=== PATIENT | female | born 1995 | race Caucasian/White ===

== ENCOUNTER 2018-06-13 01:54 | Inpatient (IN) | payer OTHER ==
--- NOTE | 2018-06-13 02:24 | ED ---
Psychiatric Complaint - HPI Summary HPI Summary: This patient is a 23 year old female brought in by ambulance to [facility] with a chief complaint of SI and suicide attempt since yesterday. Patient was brought in by ambulance from [facility]. Patient stated that she took approximately 20-25 tablets of 200mg Ibuprofen earlier yesterday night in a suicide attempt. Patient states that she recently lost her son at childbirth on 01/26/2018, her job, and her relationship. The pain is rated 0/10 in severity. Symptoms aggravated by nothing. Symptoms alleviated by nothing. Patient states she has no prior hx of depression before this. - History Of Current Complaint Chief Complaint: EDMentalHealth Time Seen by Provider: 06/13/18 02:09 Hx Obtained From: Patient Onset/Duration: Lasting Days - 1, Still Present Timing: Constant Severity Initially: Moderate Severity Currently: Mild Character: Depressed Aggravating Factor(s): Nothing Alleviating Factor(s): Nothing Associated Signs And Symptoms: Positive: Social Withdrawal Related History: Negative For: Prior Psychiatric Issues Has Suicidal: Reports: Thoughts, With A Plan, Demonstrates Gesture Ingestion History: Type/Name Of Drug - ibuprofen, Amount Ingested - 20-25 tablets - Allergies/Home Medications Home Medications: Home Medications Metformin HCl 500 mg PO DAILY 06/13/18 [History Confirmed 06/13/18] PMH/Surg Hx/FS Hx/Imm Hx Previously Healthy: Yes Opthamlomology History: Denies: Hx Legally Blind EENT History: Denies: Hx Deafness Infectious Disease History: No Infectious Disease History: Denies: Traveled Outside the [place] in Last 30 Days - Family History Known Family History: Negative: Hypertension - Social History Lives: Alone Alcohol Use: None Hx Substance Use: No Substance Use Type: Reports: None Hx Tobacco Use: No Smoking Status (MU): Never Smoked Tobacco Review of Systems Negative: Fever Positive: Depressed, Other - SI All Other Systems Reviewed And Are Negative: Yes Physical Exam - Summary Physical Exam Summary: VITAL SIGNS: Reviewed. GENERAL: Patient is a well-developed and nourished female who is lying comfortable in the stretcher. Patient is not in any acute respiratory distress. HEAD AND FACE: No signs of trauma. No ecchymosis, hematomas or skull depressions. No sinus tenderness. EYES: PERRLA, EOMI x 2, No injected conjunctiva, no nystagmus. EARS: Hearing grossly intact. Ear canals and tympanic membranes are within normal limits. MOUTH: Oropharynx within normal limits. NECK: Supple, trachea is midline, no adenopathy, no JVD, no carotid bruit, no c- spine tenderness, neck with full ROM. CHEST: Symmetric, no tenderness at palpation LUNGS: Clear to auscultation bilaterally. No wheezing or crackles. CVS: Regular rate and rhythm, S1 and S2 present, no murmurs or gallops appreciated. ABDOMEN: Soft, non-tender. No signs of distention. No rebound no guarding, and no masses palpated. Bowel sounds are normal. EXTREMITIES: FROM in all major joints, no edema, no cyanosis or clubbing. NEURO: Alert and oriented x 3. No acute neurological deficits. Speech is normal and follows commands. PSYCH: SI. Depressed affect. SKIN: Dry and warm Triage Information Reviewed: Yes Vital Signs On Initial Exam: Initial Vitals Temp Pulse Resp BP Pulse Ox 97.7 F 83 16 111/85 100 06/13/18 02:02 06/13/18 02:02 06/13/18 02:02 06/13/18 02:02 06/13/18 02:02 Vital Signs Reviewed: Yes Diagnostics - Vital Signs Vital Signs Temp Pulse Resp BP Pulse Ox 06/13/18 02:02 97.7 F 83 16 111/85 100 - Laboratory Result Diagrams: 06/15/18 07:49 06/15/18 07:49 Lab Statement: Any lab studies that have been ordered have been reviewed, and results considered in the medical decision making process. Course/Dx - Course Course Of Treatment: This patient is a 23 year old female brought in by ambulance to [facility] with a chief complaint of SI and suicide attempt since yesterday. Patient was brought in by ambulance from [facility]. Patient stated that she took approximately 20-25 tablets of 200mg Ibuprofen earlier yesterday night in a suicide attempt. The pt is hemodynamically stable, alert and oriented x3. Patient is diagnosed with depression. Patient will be signed out to Dr. Olsen at end of shift, pending MHE. The patient is agreeable with this plan. - Differential Dx/Clinical Impression Provider Diagnosis: Depression - Physician Notifications Patient Is Medically Stable For: Psych Evaluation Discharge - Sign-Out/Discharge Documenting (check all that apply): Sign-Out Patient Signing out patient TO: Bobby Olsen Patient Received Moderate/Deep Sedation with Procedure: No - Discharge Plan Condition: Stable Disposition: [place]CHIATRIC FAC[place] [place] Billing Disposition and Condition Condition: STABLE Disposition: Psychiatric Facility [facility] - Attestation Statements Document Initiated by Bennette: Yes Documenting Scribe: Jamison Benton Provider For Whom Jocelyn is Documenting (Include Credential): Loren Rodriguez MD Scribe Attestation: Jamison Edmondson, scribed for Loren Rodriguez MD on 06/18/18 at 0623. Scribe Documentation Reviewed: Yes Provider Attestation: The documentation as recorded by the Jamison avila accurately reflects the service I personally performed and the decisions made by Roslyn barnett MD Status of Scribe Document: Viewed
--- NOTE | 2018-06-13 07:08 | ED ---
Progress - Progress Note Progress Note: This patient was signed out from Dr. Rodriguez to Dr. Olsen upon provider shift change pending mental health evaluation. Course/Dx - Course Course Of Treatment: Ms. Mitchell had been medically cleared at the beginning of my shift and was taken over to the [facility] where she underwent a mental health eval. They recommended involuntary 939 admission and she was transferred to the unit. - Diagnoses Provider Diagnoses: Depression Discharge - Sign-Out/Discharge Documenting (check all that apply): Patient Departure - admit to [facility] [place], Receiving Sign-Out Receiving patient FROM: Loren Rodriguez Patient Received Moderate/Deep Sedation with Procedure: No - Discharge Plan Condition: Stable Disposition: [facility]CHIATRIC FACILITY[place] [place] - Billing Disposition and Condition Condition: STABLE Disposition: Psychiatric Facility [facility] [place] - Attestation Statements Document Initiated by Scribe: Yes Documenting Scribe: Ashely Krause Provider For Whom Scribe is Documenting (Include Credential): Bobby Olsen MD Scribe Attestation: Ashely Edmondson, scribed for Bobby Olsen MD on 06/13/18 at 1827. Scribe Documentation Reviewed: Yes Provider Attestation: The documentation as recorded by the scribeAshely accurately reflects the service I personally performed and the decisions made by me, Bobby Olsen MD Status of Scribe Document: Viewed
[2018-06-13 13:57] LABS: ABS Basophils 0.2 10^3/ul (0-0.2); ABS Eosinophils 0.3 10^3/ul (0-0.6); ABS Lymphocytes 3.3 10^3/ul (1.0-4.8); ABS Monocytes 1.5 10^3/ul (0-0.8); ABS Neutrophils 10.7 10^3/ul (1.5-7.7); ABS Nucleated RBC 0 10^3/ul; Eosinophil % 2.1 %; Hematocrit 46 % (35-47); Hemoglobin 15.5 g/dl (12.0-16.0); Lymphocyte % 20.5 %; Mean Corpuscular HGB Conc 33 g/dl (31-36); Mean Corpuscular Hemoglobin 30 pg (27-31); Mean Corpuscular Volume 91 fL (80-97); Mean Platelet Volume 8.1 fL (7.4-10.4); Nucleated Red Blood Cells % 0; Platelet Count 286 10^3/ul (150-450); Red Blood Count 5.13 10^6/ul (4.00-5.40); Red Cell Distribution Width 14 % (10.5-15)
[2018-06-13 14:09] LABS: Acetaminophen < 15 mcg/mL; Alcohol < 10 mg/dL (<10); Salicylate < 2.50 mg/dL (<30)
[2018-06-13 14:10] LABS: ALT 20 U/L (7-52); AST 19 U/L (13-39); Albumin 4.2 g/dL (3.2-5.2); Albumin/Globulin Ratio 1.7 (1-3); Alkaline Phosphatase 61 U/L (34-104); Anion Gap 7 mmol/L (2-11); BUN/Creatinine Ratio 11.9 (8-20); Blood Urea Nitrogen 16 mg/dL (6-24); CO2 Carbon Dioxide 23 mmol/L (22-32); Calcium 9.5 mg/dL (8.6-10.3); Chloride 111 mmol/L (101-111); EGFR African American 59.8 (>60); EGFR Non-African American 49.5 (>60); Globulin 2.5 g/dL (2-4); Glucose 92 mg/dL (70-100); Potassium 4.3 mmol/L (3.5-5.0); Sodium 141 mmol/L (135-145); Total Protein 6.7 g/dL (6.4-8.9)
[2018-06-13 14:16] LABS: HCG Pregnancy < 0.60 mIU/mL
[2018-06-13 14:24] LABS: TSH (Thyroid Stimulating Horm) 0.58 mcIU/mL (0.34-5.60)
[2018-06-13] MEDS ORDERED: Acetaminophen TAB* 325 MG PO PRN (18:19)
[2018-06-13] MEDS ORDERED: Al Hydrox/Mg Hydrox/Simet LIQ* 30 ML UDC PO PRN (18:19)
[2018-06-13] MEDS ORDERED: Nicotine Inhaler* 10 MG AMP INH PRN (19:27)
[2018-06-13] MEDS ORDERED: Nicotine GUM* 2 MG PO PRN (19:27)
[2018-06-13] MEDS ORDERED: Mouth Piece, Nicotine* 1 EACH CARTRIDGE INH SCH (19:27)
[2018-06-13] MEDS: Nicotine Patch Removal NOTE PATCH OFF SCH (20:38)
[2018-06-14] MEDS: Vitamin THERAPEUTIC TAB PO SCH (10:10)
[2018-06-14] MEDS: Nicotine PATCH 21 MG/24 HR* PATCH TRANSDERM SCH (10:10)
--- NOTE | 2018-06-14 19:23 | HP ---
HISTORY AND PHYSICAL: DATE OF ADMISSION: 06/13/18 IDENTIFYING DATA: Arlet is a 23-year-old female with no prior history of mental illness, who was brought in from [facility] after a suicide attempt by overdosing on handful of 200 mg ibuprofen earlier during the day. CHIEF COMPLAINT: "I was totally overwhelmed with too many things happening at the same time and wanted to end my life." HISTORY OF PRESENT ILLNESS: Arlet, with no prior history of mental illness, hospitalization, or treatment outpatient basis was taken to the [facility] following an intentional overdose on 20 to 25 200-mg tablets of ibuprofen. Arlet reports that her boyfriend of couple of years left her. Her mother reportedly had a recurrence of cancer. Her father is not doing that well. She lost her job and does not know how she is going to support herself. On top of everything, it was almost a year that she lost her son at . She was overwhelmed that she decided to end her life to overcome the emotional pain. There were other friends around her when she did it. They called 911 and she was taken to the [facility] from where she was transferred to this hospital. During the assessment, Arlet denies any manic, hypomanic, depressive, or psychotic symptoms. She was never diagnosed with any mental illness and never seen a psychiatrist. Her only problem is a diagnosis of polycystic ovary disease for which she takes metformin. At this time, she denies any mood, thought, or perceptual problems. During today's evaluation, she also denies any thoughts of harming self or others. PAST PSYCHIATRIC HISTORY: Unremarkable. SUBSTANCE ABUSE HISTORY: Denies using any drugs. PAST MEDICAL HISTORY: Polycystic ovary disease. ALLERGIES: No known drug allergies. FAMILY HISTORY: She is one of 8 siblings; however, she denies any one of them has mental illness. Also, denies mental illness in any of her first-degree relatives including her parents. PERSONAL AND SOCIAL HISTORY: Arlet lived for the last couple of years with her live- in boyfriend, who recently took his stuff and left saying that he needed a personal space and did not want to continue with the relationship. She was employed up until recently and was able to pay all the bills; however, she is unemployed at this time and hoping that she will be able to find a job or move with her parents, who are willing to take her back. She denies any legal problems. PHYSICAL EXAMINATION GENERAL: She is an obese, but healthy-appearing usual 23-year-old. VITAL SIGNS: Her vitals taken show a blood pressure of 111/85, pulse 83, respirations 16, temperature 97.7 degrees Fahrenheit, pulse ox 100% on room air. HEENT: Head and face within normal limits. Head is atraumatic, normocephalic with blonde hair. Face is within normal limits. Eyes: PERRLA, EOMI x2. Clear conjunctivae. Ears: Clean ear canals bilaterally with intact eardrums. Mouth: Fair hygiene with minor problem with her dentition. NECK: Supple with midline trachea. No lymphadenopathy or thyromegaly. CHEST: Equal air entry bilaterally. No wheezing or crackles. CVS: Normal heart rate and rhythm. S1 and S2 only. No murmurs, gallops, or rubs. ABDOMEN: Somewhat obese; however, no evidence of organomegaly. Positive bowel sounds in all quadrants. EXTREMITIES: Within normal limits. Full movements of joints. Positive pulses in all extremities. NEUROLOGICAL: Alert and oriented to time, place, and person. Cranial nerves II through XII grossly intact. No sensory deficit. MENTAL STATUS EXAMINATION: Appropriately dressed, neatly groomed, average height white female, who is alert and oriented to time, place, and person. She makes good eye contact. Speech is normal in all spheres. Describes her mood as "fine." Observed affect appears to be euthymic. Thought processes are logical and goal directed. Thought content did not elicit any delusions, suicidal, or homicidal ideations. Denies any hallucinations. Intelligence appears to be average as evidenced by her vocabulary and fund of knowledge. Memory functions are intact in all spheres. Insight and judgment appear to be poor. SUMMARY: This 23-year-old female with no prior history of treatments for mental illness, who is going through multiple stressful life events and impulsively overdosed with an intention to end her life. DIAGNOSTIC IMPRESSION: MENTAL HEALTH DIAGNOSIS: Adjustment disorder with depressed mood, rule out major depressive disorder. PHYSICAL HEALTH DIAGNOSIS: Polycystic ovary disease. TREATMENT RECOMMENDATIONS: Arlet will remain hospitalized on [facility] for her safety , observation, and diagnostic clarifications. Her code status will remain full. Supportive milieu, individual, and group therapy will be initiated, which she has been attending since her admission. At this time, I do not see any reason to start her on any medications; however, if her assigned psychiatrist on the unit feels that way, they can prescribe her something. I will continue her on her outpatient medications, which include metformin. [id number]/[facility] #: [id number] TIFFANIE
[2018-06-14] MEDS: Nicotine Patch Removal NOTE PATCH OFF SCH (21:28)
[2018-06-15 08:37] LABS: HDL Cholesterol 25.1 mg/dL
[2018-06-15] MEDS: Nicotine PATCH 21 MG/24 HR* PATCH TRANSDERM SCH (09:29)
[2018-06-15] MEDS: Vitamin THERAPEUTIC TAB PO SCH (09:29)
--- NOTE | 2018-06-15 11:31 | PN ---
Subjective - Subjective Date of Service: 06/15/18 Service Type: 84548 Hosp care 25 min moderate complexity Subjective: Nursing Report: Patient was visible on unit, no chemical restraints or PRNs. Slept overnight without incident. Attending group activities. CC: "I am good Patient was seen and evaluated in the common room. The patient reported she feels safe on the unit and is interacting with peers. She reported having an adequate appetite and sleep. The patient reports attending and participating in day groups. Per nursing no behavioral issues or overnight events reported. Patient reported that she was dealing with a recent break up, and health problems with her parents and took a overdose of pills. She would like to have a therapist once she is discharged. She denied feeling depressed outside of dealing with the current stressors. She denied suicidal ideation, intent or plan. She denied homicidal ideation intent or plan. She denied auditory and or visual hallucinations. Objective - Appearance Appearance: Obese Dysmorphic Features: No Hygiene: Normal Grooming: Well Kept - Behavior Psychomotor Activities: Normal Exhibits Abnormal Movement: No - Attitude and Relatedness Attitude and Relatedness: Cooperative Eye Contact: Fair - Speech Quality: Unpressured Latencies: Normal Quantity: Appropriate - Mood Patient's Decription of Mood: "Good" - Affect Observed Affect: Non-labile Affect Consistent with: Euthymia - Thought Process Patient's Thought Process: Goal Directed Thought Content: No Passive Wish, No Suicidal Planning, No Homicidal Ideation - Sensorium Experiencing Hallucinations: No, Sensorium is Clear Type of Hallucinations: Visual: No, Auditory: No, Command: No - Level of Consciousness Level of Consciousness: Alert Orientation: Yes Intact, Yes Orientated to Time, Yes Orientated to Place, Yes Orientated to Person - Impulse Control Impulse Control: Impaired - Insight and Judgement Insight and Judgement: Fair - Group Participation Particating in Group Activities: Yes - Medication Management Medication Management Adherence: No Assessment - Assessment Clinical Impression: 23 year old white female presents to the ED after overdosing with pills after a recent break up and health concerns of both of her parents. She has no past psychiatric history. Plan - Plan Treatment Plan: Name: DARRIUS VASQUEZ Birthdate: 1995 [id number] #Patient requires inpatient psychiatric hospitalization at this time. #Patient doesnt require psychiatric medications- as patients presentation is more related to current stressors. #Will continue to monitor for safety every 15 minutes on the unit. #Labs pending will be reviewed once results return. #Encourage participation in group therapy and psychoeducation #Social work is on board for discharge planning. #Goals before discharge include improve control of impulses #Collateral in process of being obtained from Roseanne Traylor [phone] (Friend ) - mother Ayesha Sheehan [phone] # Tentative discharge tomorrow. To be set up with therapist before discharge. Medications: Current Medications Acetaminophen (Tylenol Tab*) 650 mg PO Q4H PRN PRN Reason: PAIN or TEMP > 101 F Al Hydrox/Mg Hydrox/Simethicone (Maalox Plus*) 30 ml PO Q4H PRN PRN Reason: INDIGESTION Device (Nicotine Mouth Piece*) 1 each INH .[facility] Multivitamins (Theragran Tab*) 1 tab PO DAILY [facility] Last Admin: 06/15/18 09:29 Dose: Not Given Nicotine (Nicotine Inhaler*) 10 mg INH Q2H PRN PRN Reason: CRAVING Nicotine (Nicotine Patch 21 Mg/24 Hr*) 1 patch TRANSDERM DAILY [facility] Last Admin: 06/15/18 09:29 Dose: Not Given Nicotine Polacrilex (Nicotine Gum*) 2 mg PO Q2H PRN PRN Reason: CRAVING Pharmacy Profile Note (Nicotine Patch Removal Note*) 1 note PATCH OFF 2100 [facility] Last Admin: 06/14/18 21:28 Dose: Not Given - Discharge Plan Discharge Plan: Inpatient Hospitalization Outpatient Program: Kathy العلي [facility]
[2018-06-15 11:43] LABS: EGFR African American 128.7 (>60); EGFR Non-African American 106.4 (>60)
[2018-06-15] MEDS: Nicotine Patch Removal NOTE PATCH OFF SCH (21:07)
[2018-06-16] MEDS: Nicotine PATCH 21 MG/24 HR* PATCH TRANSDERM SCH (09:12)
[2018-06-16] MEDS: Vitamin THERAPEUTIC TAB PO SCH (09:12)
--- NOTE | 2018-06-16 09:39 | PN ---
Subjective - Subjective Date of Service: 06/16/18 Service Type: 22961 Hosp care 25 min moderate complexity Subjective: Nursing Report: Patient was visible on unit, no chemical restraints or PRNs. Attending group activities. CC: "Good Patient was seen and evaluated in the common room. The patient reported she feels safe on the unit and is interacting with peers on the milieu. She reported having an adequate appetite. The patient reports attending and participating in day groups. Per nursing no behavioral issues or overnight events reported. Patient reported that she was dealing with a recent break up, and health problems with her parents and took a overdose of pills. She would like to have a therapist because she said that talking about the things she is going through is helpful to her. She said that her grandmother always told her that admitting something was wrong is a weakness and never believed in medications. She said that she was in denial about being anxious and depressed and would like to be started on medication. 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 She denied suicidal ideation, intent or plan. She denied homicidal ideation intent or plan. She denied auditory and or visual hallucinations. She reported being anxious last night and did not sleep well. Objective - Appearance Dysmorphic Features: Yes Hygiene: Normal Grooming: Fairly Well Kept - Behavior Psychomotor Activities: Normal Exhibits Abnormal Movement: No - Attitude and Relatedness Attitude and Relatedness: Cooperative Eye Contact: Fair - Speech Quality: Unpressured Latencies: Short Quantity: Appropriate - Mood Patient's Decription of Mood: "Good" - Affect Observed Affect: Non-labile - Thought Process Patient's Thought Process: Goal Directed Thought Content: No Passive Wish, No Suicidal Planning, No Homicidal Ideation, No Paranoid Ideation - Sensorium Experiencing Hallucinations: No, Sensorium is Clear Type of Hallucinations: Visual: No, Auditory: No, Command: No - Level of Consciousness Level of Consciousness: Alert Orientation: Yes Intact, Yes Orientated to Time, Yes Orientated to Place, Yes Orientated to Person - Impulse Control Impulse Control: Tenuous - Insight and Judgement Insight and Judgement: Fair - Group Participation Particating in Group Activities: Yes - Medication Management Medication Management Adherence: No Assessment - Assessment Clinical Impression: 23 year old white female presents to the ED after overdosing with pills after a recent break up and health concerns of both of her parents. She has no past psychiatric history. Will begin treatment with Celexa. Plan - Plan Treatment Plan: Name: DARRIUS VASQUEZ Birthdate: 1995 [id number] #Patient requires inpatient psychiatric hospitalization at this time. #Patient doesnt require psychiatric medications- as patients presentation is more related to current stressors. #Q30 and staff pass #Start celexa 20mg daily #Encourage participation in group therapy and psychoeducation #Social work is on board for discharge planning. #Goals before discharge include improve control of impulses #Mother plans to fish bait picker tomorrow and if no issues will be discharged. # Tentative discharge tomorrow. To be set up with therapist before discharge. Sodium 141 mmol/L (135-145) 06/13/18 13:41 Potassium 4.3 mmol/L (3.5-5.0) 06/13/18 13:41 BUN 16 mg/dL (6-24) 06/13/18 13:41 Creatinine 0.69 mg/dL (0.51-0.95) 06/15/18 07:49 Hemoglobin A1c 5.3 % (4.0-5.6) 06/15/18 07:49 Calcium 9.5 mg/dL (8.6-10.3) 06/13/18 13:41 AST 19 U/L (13-39) 06/13/18 13:41 ALT 20 U/L (7-52) 06/13/18 13:41 Triglycerides 111 mg/dL 06/15/18 07:49 Cholesterol 122 mg/dL 06/15/18 07:49 LDL Cholesterol 75 mg/dL 06/15/18 07:49 Continued Medication Management: Start Medication Medications: Current Medications Acetaminophen (Tylenol Tab*) 650 mg PO Q4H PRN PRN Reason: PAIN or TEMP > 101 F Al Hydrox/Mg Hydrox/Simethicone (Maalox Plus*) 30 ml PO Q4H PRN PRN Reason: INDIGESTION Device (Nicotine Mouth Piece*) 1 each INH .[facility] Multivitamins (Theragran Tab*) 1 tab PO DAILY [facility] Last Admin: 06/16/18 09:12 Dose: 1 tab Nicotine (Nicotine Inhaler*) 10 mg INH Q2H PRN PRN Reason: CRAVING Nicotine (Nicotine Patch 21 Mg/24 Hr*) 1 patch TRANSDERM DAILY [facility] Last Admin: 06/16/18 09:12 Dose: 1 patch Nicotine Polacrilex (Nicotine Gum*) 2 mg PO Q2H PRN PRN Reason: CRAVING Pharmacy Profile Note (Nicotine Patch Removal Note*) 1 note PATCH OFF 2099 [facility] Last Admin: 06/15/18 21:07 Dose: Not Given - Discharge Plan Discharge Plan: Inpatient Hospitalization
[2018-06-16] MEDS: Citalopram TAB* 20 MG PO SCH (12:29)
[2018-06-16] MEDS: Nicotine Patch Removal NOTE PATCH OFF SCH (20:08)
[2018-06-17 08:14] VITALS: BP 134/69
[2018-06-17] MEDS: Vitamin THERAPEUTIC TAB PO SCH (09:11)
[2018-06-17] MEDS: Nicotine PATCH 21 MG/24 HR* PATCH TRANSDERM SCH (09:11)
[2018-06-17] MEDS: Citalopram TAB* 20 MG PO SCH (09:11)
--- NOTE | 2018-06-17 12:28 | PN ---
Subjective - Subjective Date of Service: 06/17/18 Service Type: 50592 Hosp care 25 min moderate complexity Subjective: Nursing Report: Patient was visible on unit, no chemical restraints or PRNs. Attending group activities. CC: "Good Patient was seen and evaluated in the common room. Family meeting was held yesterday and her mother stated that she might not be ready to be discharged because she has is not being honest. Her mother reported that she has taken medications in the past and made a suicide attempt by cutting herself. The patient denied such events. The patient is in agreement with staying at the hospital. She feels safe on the unit and is interacting with peers on the milieu. She reported having an adequate appetite. She reported that her anxiety is less today and she slept well overnight. The patient reports attending and participating in day groups. Per nursing no behavioral issues or overnight events reported. She denied suicidal ideation, intent or plan. She denied homicidal ideation intent or plan. She denied auditory and or visual hallucinations. Objective - Appearance Appearance: Obese Dysmorphic Features: No Hygiene: Normal Grooming: Fairly Well Kept - Behavior Psychomotor Activities: Normal Exhibits Abnormal Movement: No - Attitude and Relatedness Attitude and Relatedness: Cooperative Eye Contact: Fair - Speech Quality: Unpressured Latencies: Normal Quantity: Appropriate - Mood Patient's Decription of Mood: "Good" - Affect Observed Affect: Non-labile Affect Consistent with: Euthymia - Thought Process Patient's Thought Process: Goal Directed Thought Content: No Passive Wish, No Suicidal Planning, No Homicidal Ideation, No Paranoid Ideation - Sensorium Experiencing Hallucinations: No, Sensorium is Clear Type of Hallucinations: Visual: No, Auditory: No, Command: No - Level of Consciousness Level of Consciousness: Alert Orientation: Yes Intact, Yes Orientated to Time, Yes Orientated to Place, Yes Orientated to Person - Impulse Control Impulse Control: Tenuous - Insight and Judgement Insight and Judgement: Fair - Group Participation Particating in Group Activities: Yes - Medication Management Medication Management Adherence: Yes Assessment - Assessment Clinical Impression: 23 year old white female presents to the ED after overdosing with pills after a recent break up and health concerns of both of her parents. Plan - Plan Treatment Plan: Name: DARRIUS VASQUEZ Birthdate: 1995 [id number] #Patient requires inpatient psychiatric hospitalization at this time. #Patient doesnt require psychiatric medications- as patients presentation is more related to current stressors. #Q30 and staff pass #Continue celexa 20mg daily #Encourage participation in group therapy and psychoeducation #Social work is on board for discharge planning. #Goals before discharge include improve anxiety # Tentative discharge Friday Vital Signs Temp Pulse Resp BP Pulse Ox 97.6 F 70 16 134/69 100 06/17/18 07:50 06/17/18 07:50 06/17/18 12:51 06/17/18 07:50 06/17/18 07:50 Sodium 141 mmol/L (135-145) 06/13/18 13:41 Potassium 4.3 mmol/L (3.5-5.0) 06/13/18 13:41 BUN 16 mg/dL (6-24) 06/13/18 13:41 Creatinine 0.69 mg/dL (0.51-0.95) 06/15/18 07:49 Hemoglobin A1c 5.3 % (4.0-5.6) 06/15/18 07:49 Calcium 9.5 mg/dL (8.6-10.3) 06/13/18 13:41 AST 19 U/L (13-39) 06/13/18 13:41 ALT 20 U/L (7-52) 06/13/18 13:41 Triglycerides 111 mg/dL 06/15/18 07:49 Cholesterol 122 mg/dL 06/15/18 07:49 LDL Cholesterol 75 mg/dL 06/15/18 07:49 Continued Medication Management: Start Medication Medications: Current Medications Acetaminophen (Tylenol Tab*) 650 mg PO Q4H PRN PRN Reason: PAIN or TEMP > 101 F Al Hydrox/Mg Hydrox/Simethicone (Maalox Plus*) 30 ml PO Q4H PRN PRN Reason: INDIGESTION Citalopram Hydrobromide (Celexa Tab*) 20 mg PO DAILY [facility] Last Admin: 06/17/18 09:11 Dose: 20 mg Device (Nicotine Mouth Piece*) 1 each INH .[facility] Multivitamins (Theragran Tab*) 1 tab PO DAILY [facility] Last Admin: 06/17/18 09:11 Dose: 1 tab Nicotine (Nicotine Inhaler*) 10 mg INH Q2H PRN PRN Reason: CRAVING Nicotine (Nicotine Patch 21 Mg/24 Hr*) 1 patch TRANSDERM DAILY [facility] Last Admin: 06/17/18 09:11 Dose: Not Given Nicotine Polacrilex (Nicotine Gum*) 2 mg PO Q2H PRN PRN Reason: CRAVING Pharmacy Profile Note (Nicotine Patch Removal Note*) 1 note PATCH OFF 2099 [facility] Last Admin: 06/16/18 20:08 Dose: 1 note - Discharge Plan Discharge Plan: Inpatient Hospitalization
--- NOTE | 2018-06-17 16:22 | PN ---
BSU: Group Therapy Note - Service Type Service Type: [id number] Group Psychotherapy - Group Participation Patient Participating in Group: Yes Level of Group Participation: Spontaneously Participate Relatedness to Group: Well Related - Additional Group Comments Group Comments: Patient was attentive and participatory in group, and remained in good behavioral control. Patient expressed positive insights regarding relevant treatment interventions. Patient stated understanding of material discussed and had appropriate questions.
[2018-06-17] MEDS: Nicotine Patch Removal NOTE PATCH OFF SCH (21:20)
[2018-06-18] MEDS: Vitamin THERAPEUTIC TAB PO SCH (08:53)
[2018-06-18] MEDS: Citalopram TAB* 20 MG PO SCH (08:53)
[2018-06-18] MEDS: Nicotine PATCH 21 MG/24 HR* PATCH TRANSDERM SCH (09:21)
--- NOTE | 2018-06-18 10:58 | PN ---
BSU: Group Therapy Note - Service Type Service Type: 72360 Group Psychotherapy - Cognitive Behavioral Group Therapy ( CBT):Patient was attentive and participatory in CBT programming this morning, and remained in good behavioral control. Patient expressed positive insights regarding relevant treatment interventions and goals.
--- NOTE | 2018-06-18 14:13 | PN ---
Subjective - Subjective Date of Service: 06/18/18 Service Type: 02855 Hosp care 25 min moderate complexity Subjective: Nursing Report: Patient was visible on unit, no chemical restraints or PRNs. Attending group activities. CC: "Better Patient was seen and evaluated in the common room. Patient said that she never had a prior suicide attempt other than the days leading to her admission . She said that she scratched her self on the arm the day before coming to the ED. The patient feels safe on the unit and is interacting with peers on the milieu. She reported having an adequate appetite. She reported that her anxiety is less today and she slept well overnight. The patient reports attending and participating in day groups. Per nursing no behavioral issues or overnight events reported. She denied suicidal ideation, intent or plan. She denied homicidal ideation intent or plan. She denied auditory and or visual hallucinations. Objective - Appearance Appearance: Healthy Appearing Dysmorphic Features: No Hygiene: Normal Grooming: Fairly Well Kept - Behavior Psychomotor Activities: Normal Exhibits Abnormal Movement: No - Attitude and Relatedness Attitude and Relatedness: Cooperative Eye Contact: Fair - Speech Quality: Unpressured Latencies: Normal Quantity: Appropriate - Mood Patient's Decription of Mood: "Fine" - Affect Observed Affect: Non-labile - Thought Process Patient's Thought Process: Coherent Thought Content: No Passive Wish, No Suicidal Planning, No Homicidal Ideation, No Paranoid Ideation - Sensorium Experiencing Hallucinations: No, Sensorium is Clear Type of Hallucinations: Visual: No, Auditory: No, Command: No - Level of Consciousness Level of Consciousness: Alert Orientation: Yes Intact, Yes Orientated to Time, Yes Orientated to Place, Yes Orientated to Person - Impulse Control Impulse Control: Tenuous - Insight and Judgement Insight and Judgement: Fair - Group Participation Particating in Group Activities: Yes - Medication Management Medication Management Adherence: Yes Assessment - Assessment Merits Inpatient Hospitalization: For Immediate Safety Clinical Impression: 23 year old white female presents to the ED after overdosing with pills after a recent break up and health concerns of both of her parents. She has shown improvement with treatment. Plan - Plan Treatment Plan: Name: DARRIUS VASQUEZ Birthdate: 1995 [id number] #Patient requires inpatient psychiatric hospitalization at this time. #Patient doesnt require psychiatric medications- as patients presentation is more related to current stressors. #Q30 and staff pass #Continue celexa 20mg daily #Encourage participation in group therapy and psychoeducation #Social work is on board for discharge planning. #Goals before discharge include improve anxiety # Tentative discharge Friday Vital Signs Temp Pulse Resp BP Pulse Ox 97.6 F 70 16 134/69 100 06/17/18 07:50 06/17/18 07:50 06/17/18 12:51 06/17/18 07:50 06/17/18 07:50 Laboratory Tests 06/13/18 06/13/18 06/15/18 13:41 13:41 07:49 WBC 16.0 H RBC 5.13 Hgb 15.5 Hct 46 MCV 91 MCH 30 MCHC 33 RDW 14 Plt Count 286 MPV 8.1 Neut % (Auto) 66.9 Lymph % (Auto) 20.5 Carlisle % (Auto) 9.3 Eos % (Auto) 2.1 Baso % (Auto) 1.2 Absolute Neuts (auto) 10.7 H Absolute Lymphs (auto) 3.3 Absolute Monos (auto) 1.5 H Absolute Eos (auto) 0.3 Absolute Basos (auto) 0.2 Absolute Nucleated RBC 0 Nucleated RBC % 0 Sodium 141 Potassium 4.3 Chloride 111 Carbon Dioxide 23 Anion Gap 7 BUN 16 Creatinine 1.34 H 0.69 Est GFR ( Amer) 59.8 128.7 Est GFR (Non-Af Amer) 49.5 106.4 BUN/Creatinine Ratio 11.9 Glucose 92 Hemoglobin A1c Calcium 9.5 Total Bilirubin 0.30 AST 19 ALT 20 Alkaline Phosphatase 61 Total Protein 6.7 Albumin 4.2 Globulin 2.5 Albumin/Globulin Ratio 1.7 Triglycerides 111 Cholesterol 122 LDL Cholesterol 75 HDL Cholesterol 25.1 TSH 0.58 Beta HCG, Quant < 0.60 Salicylates < 2.50 Acetaminophen < 15 Serum Alcohol < 10 06/15/18 06/15/18 07:49 07:49 WBC 13.0 H RBC Hgb Hct MCV MCH MCHC RDW Plt Count MPV Neut % (Auto) Lymph % (Auto) Carlisle % (Auto) Eos % (Auto) Baso % (Auto) Absolute Neuts (auto) Absolute Lymphs (auto) Absolute Monos (auto) Absolute Eos (auto) Absolute Basos (auto) Absolute Nucleated RBC Nucleated RBC % Sodium Potassium Chloride Carbon Dioxide Anion Gap BUN Creatinine Est GFR ( Amer) Est GFR (Non-Af Amer) BUN/Creatinine Ratio Glucose Hemoglobin A1c 5.3 Calcium Total Bilirubin AST ALT Alkaline Phosphatase Total Protein Albumin Globulin Albumin/Globulin Ratio Triglycerides Cholesterol LDL Cholesterol HDL Cholesterol TSH Beta HCG, Quant Salicylates Acetaminophen Serum Alcohol Continued Medication Management: Start Medication Medications: Current Medications Acetaminophen (Tylenol Tab*) 650 mg PO Q4H PRN PRN Reason: PAIN or TEMP > 101 F Al Hydrox/Mg Hydrox/Simethicone (Maalox Plus*) 30 ml PO Q4H PRN PRN Reason: INDIGESTION Citalopram Hydrobromide (Celexa Tab*) 20 mg PO DAILY [facility] Last Admin: 06/18/18 08:53 Dose: 20 mg Device (Nicotine Mouth Piece*) 1 each INH .[facility] Multivitamins (Theragran Tab*) 1 tab PO DAILY [facility] Last Admin: 06/18/18 08:53 Dose: 1 tab Nicotine (Nicotine Inhaler*) 10 mg INH Q2H PRN PRN Reason: CRAVING Nicotine (Nicotine Patch 21 Mg/24 Hr*) 1 patch TRANSDERM DAILY [facility] Last Admin: 06/18/18 09:21 Dose: Not Given Nicotine Polacrilex (Nicotine Gum*) 2 mg PO Q2H PRN PRN Reason: CRAVING Pharmacy Profile Note (Nicotine Patch Removal Note*) 1 note PATCH OFF 2099 [facility] Last Admin: 06/17/18 21:20 Dose: 1 note - Discharge Plan Discharge Plan: Inpatient Hospitalization
[2018-06-18] MEDS: Nicotine Patch Removal NOTE PATCH OFF SCH (20:15)
[2018-06-19] MEDS: Nicotine PATCH 21 MG/24 HR* PATCH TRANSDERM SCH (08:31)
[2018-06-19] MEDS: Citalopram TAB* 20 MG PO SCH (08:32)
[2018-06-19] MEDS: Vitamin THERAPEUTIC TAB PO SCH (08:32)
--- NOTE | 2018-06-19 11:53 | DS ---
Subjective - Subjective Service Types: 10776 [facility] Day Mgmt complex over 30 min Discharge Date: 06/19/18 Subjective: IDENTIFYING DATA: Arlet is a 23-year-old female with no prior history of mental illness, who was brought in from [facility] after a suicide attempt by overdosing on handful of 200 mg ibuprofen earlier during the day. CHIEF COMPLAINT: "I was totally overwhelmed with too many things happening at the same time and wanted to end my life." HISTORY OF PRESENT ILLNESS: Arlet, with no prior history of mental illness, hospitalization, or treatment outpatient basis was taken to the [facility] following an intentional overdose on 20 to 25 200-mg tablets of ibuprofen. Arlet reports that her boyfriend of couple of years left her. Her mother reportedly had a recurrence of cancer. Her father is not doing that well. She lost her job and does not know how she is going to support herself. On top of everything, it was almost a year that she lost her son at . She was overwhelmed that she decided to end her life to overcome the emotional pain. There were other friends around her when she did it. They called 911 and she was taken to the [facility] from where she was transferred to this hospital. During the assessment, Arlet denies any manic, hypomanic, depressive, or psychotic symptoms. She was never diagnosed with any mental illness and never seen a psychiatrist. Her only problem is a diagnosis of polycystic ovary disease for which she takes metformin. At this time, she denies any mood, thought, or perceptual problems. During today's evaluation, she also denies any thoughts of harming self or others. PAST PSYCHIATRIC HISTORY: Unremarkable. SUBSTANCE ABUSE HISTORY: Denies using any drugs. PAST MEDICAL HISTORY: Polycystic ovary disease. ALLERGIES: No known drug allergies. FAMILY HISTORY: She is one of 8 siblings; however, she denies any one of them has mental illness. Also, denies mental illness in any of her first-degree relatives including her parents. PERSONAL AND SOCIAL HISTORY: Arlet lived for the last couple of years with her live- in boyfriend, who recently took his stuff and left saying that he needed a personal space and did not want to continue with the relationship. She was employed up until recently and was able to pay all the bills; however, she is unemployed at this time and hoping that she will be able to find a job or move with her parents, who are willing to take her back. She denies any legal problems. This report is only to be considered final once signed by the Provider(s) as displayed in the "<Electronically Signed by >" field (s). Absence of a signature indicates the report is in a draft status and still needs to be finalized. In the event this document was created by someone other than the signing Provider, the individual initiating the document will be listed in the "Entered by:" or "Dictated by:" slaughter. PHYSICAL EXAMINATION GENERAL: She is an obese, but healthy-appearing usual 23-year-old. VITAL SIGNS: Her vitals taken show a blood pressure of 111/85, pulse 83, respirations 16, temperature 97.7 degrees Fahrenheit, pulse ox 100% on room air. HEENT: Head and face within normal limits. Head is atraumatic, normocephalic with blonde hair. Face is within normal limits. Eyes: PERRLA, EOMI x2. Clear conjunctivae. Ears: Clean ear canals bilaterally with intact eardrums. Mouth: Fair hygiene with minor problem with her dentition. NECK: Supple with midline trachea. No lymphadenopathy or thyromegaly. CHEST: Equal air entry bilaterally. No wheezing or crackles. CVS: Normal heart rate and rhythm. S1 and S2 only. No murmurs, gallops, or rubs. ABDOMEN: Somewhat obese; however, no evidence of organomegaly. Positive bowel sounds in all quadrants. EXTREMITIES: Within normal limits. Full movements of joints. Positive pulses in all extremities. NEUROLOGICAL: Alert and oriented to time, place, and person. Cranial nerves II through XII grossly intact. No sensory deficit. MENTAL STATUS EXAMINATION: Appropriately dressed, neatly groomed, average height white female, who is alert and oriented to time, place, and person. She makes good eye contact. Speech is normal in all spheres. Describes her mood as "fine." Observed affect appears to be euthymic. Thought processes are logical and goal directed. Thought content did not elicit any delusions, suicidal, or homicidal ideations. Denies any hallucinations. Intelligence appears to be average as evidenced by her vocabulary and fund of knowledge. Memory functions are intact in all spheres. Insight and judgment appear to be poor. SUMMARY: This 23-year-old female with no prior history of treatments for mental illness, who is going through multiple stressful life events and impulsively overdosed with an intention to end her life. DIAGNOSTIC IMPRESSION: MENTAL HEALTH DIAGNOSIS: Adjustment disorder with depressed mood, rule out major depressive disorder. PHYSICAL HEALTH DIAGNOSIS: Polycystic ovary disease. TREATMENT RECOMMENDATIONS: Arlet will remain hospitalized on BSU for her safety , observation, and diagnostic clarifications. Her code status will remain full. Supportive milieu , individual, and group therapy will be initiated, which she has been attending since her admission. At this time, I do not see any reason to start her on any medications; however, if her assigned psychiatrist on the unit feels that way, they can prescribe her something. I will continue her on her outpatient medications, which include metformin. Justification for Admission: Immediate safety Diagnosis on Admission:Adjustment disorder with depressed mood, rule out major depressive disorder. Diagnosis on Discharge: Major Depressive Disorder currently in remission Condition at the time of discharge: At the time of discharge patient showed improvement of sleep and appetite. The patient was not a danger to self or others. The patient denied suicidal ideations , intent or plans. The patient denied homicidal targets, ideations, intents or plans. This patient participated in psychosocial rehabilitation and gained some insight into problems. The patient gained insight into mental illness, triggers, and treatment. The patient took medication as prescribed. The patient denied side effects of medication and objective signs of side effects were not evident. Therapy Resources were offered to the patient. Patient was given a supply of prescriptions at the time of discharge. This patient will follow up with the follow up arrangements that were discussed and put in place. Patient was asked to keep appointments as scheduled, take medication as prescribed, have routine follow up care with their primary care physician and refrain from any use of alcohol or drugs. Objective - Appearance Appearance: Obese Dysmorphic Features: No Hygiene: Normal Grooming: Fairly Well Kept - Behavior Psychomotor Activities: Normal Exhibits Abnormal Movement: No - Attitude and Relatedness Attitude and Relatedness: Cooperative Eye Contact: Fair - Speech Quality: Unpressured Latencies: Normal Quantity: Appropriate - Mood Patient's Decription of Mood: "Good" - Affect Observed Affect: Non-labile Affect Consistent with: Euthymia - Thought Process Patient's Thought Process: Goal Directed Thought Content: No Passive Wish, No Suicidal Planning, No Homicidal Ideation, No Paranoid Ideation - Sensorium Experiencing Hallucinations: No, Sensorium is Clear Type of Hallucinations: Visual: No, Auditory: No, Command: No - Level of Consciousness Level of Consciousness: Alert Orientation: Yes Intact, Yes Orientated to Time, Yes Orientated to Place, Yes Orientated to Person - Impulse Control Impulse Control: Intact - Insight and Judgement Insight and Judgement: Good - Group Participation Particating in Group Activities: Yes - Medication Management Medication Management Adherence: Yes Treatment Course & Assessment Clinical Course & Impression: 23 year old white female presents to the ED after overdosing with pills after a recent break up and health concerns of both of her parents. She has shown improvement with treatment. Hospital course part A: Patient admitted for suicide attempt of taking 20 pills of ibuprofen. Hospital course part B: The patient was admitted to the adult behavioral unit and placed on 15 minute check for safety. And later changed to [id number] and staff pass without behavioral issues. The patient did well on the unit and went to groups. Interacted with peers had adequate sleep and regular appetite. Tolerated medication changes without side effects. Group therapy and services were offered. The risks, benefits, and alternative treatment options were discussed as well as of the risks of refusing treatment. Treatment associated risks discussed . After this discussion and an acknowledgement of this understanding , made the decision for the current type of treatment. Follow up care appointments were put in place. ENGINEERING VICE PRESIDENT was checked no indications of prescription abuse or diversion were present. Patient advised of the lethality and dangerousness of combining medications with alcohol and drugs and acknowledged this understanding. She was advised of risks treatment have on and BHCG was negative. The patient was advised of the 24 hour / 7 days a week availability of the emergency room and to call 911 in the event of becoming suicidal and/ or homicidal and for all other emergencies. The patient was informed of the contact information for [facility], Suicide Prevention and Crisis Services, National Suicide Prevention Lifeline, [facility], Alcoholics Anonymous, and [facility]. Medications started included metformin 500mg po daily for diabetes, given nicotine inhaler and nicotine patch for smoking cravings.She was provided resources to quit smoking and refused. Her mother picked her up and did not have any further questions for staff before leaving. She was provided celexa 20mg po daily for depression. test was negative on admission. Family meeting took place on Friday and mother stated that Friday would be a better time for discharge. 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 Improvements in patient from the time of admission include: Improved affect, sleep and social interaction. Decreased anxiety and depression. No longer suicidal. She is not older age , no history of service, no suicidal plan or ideation. She was not having feelings of hopelessness , not in a occupation of social isolation, did not have multiple physical illnesses, no family history of suicide, no Access to firearms or stock pile of medications ( mother assured no razors or stockpile of medications upon discharge) No Command hallucinations. No history of alcohol or drug use. Merits Inpatient Hospitalization: No Clear for Discharge: Adequate Clinical Respons Discharge Planning - Discharge Planning Discharge Plan: Outpatient Follow Up Outpatient Program: [facility] Recommendations for Continuing Care: Medication Management Medications: Current Medications Acetaminophen (Tylenol Tab*) 650 mg PO Q4H PRN PRN Reason: PAIN or TEMP > 101 F Al Hydrox/Mg Hydrox/Simethicone (Maalox Plus*) 30 ml PO Q4H PRN PRN Reason: INDIGESTION Citalopram Hydrobromide (Celexa Tab*) 20 mg PO DAILY [facility] Last Admin: 06/19/18 08:32 Dose: 20 mg Device (Nicotine Mouth Piece*) 1 each INH .[facility] Multivitamins (Theragran Tab*) 1 tab PO DAILY [facility] Last Admin: 06/19/18 08:32 Dose: 1 tab Nicotine (Nicotine Inhaler*) 10 mg INH Q2H PRN PRN Reason: CRAVING Nicotine (Nicotine Patch 21 Mg/24 Hr*) 1 patch TRANSDERM DAILY [facility] Last Admin: 06/19/18 08:31 Dose: Not Given Nicotine Polacrilex (Nicotine Gum*) 2 mg PO Q2H PRN PRN Reason: CRAVING Pharmacy Profile Note (Nicotine Patch Removal Note*) 1 note PATCH OFF 2100 [facility] Last Admin: 06/18/18 20:15 Dose: Not Given Discharge Planning: Prescriptions provided for discharge [x] Yes [] No Follow up care details as per social work arrangements. Patient response to discharge plan: [] eager for discharge [x] agreeable with discharge plan [] ambivalent about discharge [] disagrees with discharge today
== END 2018-06-19 15:45 | disposition home or self-care (01) | DRG 812 ==
LOC: ED 01:54 → BSU 16:30
PROVIDERS: ADMIT Psychiatry & Neurology Psychiatry; ATTEND Psychiatry & Neurology Psychiatry
DX: T39.312A Poisoning by propionic acid derivatives, intentional self-harm, initial encounter (principal); Z68.41 Body mass index [BMI] 40.0-44.9, adult; Y92.9 Unspecified place or not applicable; E28.2 Polycystic ovarian syndrome; E66.9 Obesity, unspecified; Z79.899 Other long term (current) drug therapy; F43.21 Adjustment disorder with depressed mood; F32.9 Major depressive disorder, single episode, unspecified
CPT/HCPCS: 36415; 80053; 80061; 80320; 80329; 82565; 83036; 84443; 84702; 85025; 85048; 90853; 99222; 99232; 99283; A9270-GY; G0480